=== PATIENT | female | born 1975 | race African-American/Black ===

== ENCOUNTER 2023-07-18 15:31 | Emergency (ER) | payer OTHER ==
[~2023-07-18] VITALS: Ht 165.1 cm; Wt 83.0 kg
[2023-07-18 15:33] VITALS: O2SAT 99
[2023-07-18] MEDS: HALOPERIDOL LACTATE 5MG/ML VIAL IM ONE (18:05)
[2023-07-18] MEDS: DIPHENHYDRAMINE 50MG/ML VIAL IM ONE (18:05)
[2023-07-18] MEDS: LORAZEPAM 2MG/ML INJ IM ONE (18:05)
[2023-07-18] MEDS ORDERED: MIDAZOLAM HCL 2 MG/2 ML VIAL IM ONE (18:30)
[2023-07-18] MEDS ORDERED: OLANZAPINE 10 MG/VIAL IM ONE (18:30)
[2023-07-18 18:43] LABS: BASOPHILS % 0.9 % (0.0-2.0); DIFFERENTIAL COMMENT 0; EOSINOPHILS % 0.9 % (0.0-5.0); HEMATOCRIT. 40.2 % (36.0-48.0); HEMOGLOBIN. 13.3 g/dL (12.0-16.0); LYMPHOCYTES % 34.3 % (20.0-50.0); MEAN CORPUSCULAR HEMOGLOBIN 27.6 pg (28.0-32.0); MEAN CORPUSCULAR VOLUME 83.8 fL (81.0-99.0); MEAN PLATELET VOLUME 10.1 fl (7.4-10.4); MONOCYTES % 7.4 % (2.0-8.0); NEUTROPHILS % 56.5 % (40.0-76.0); PLATELET 327 x1000/uL (130-400); RED CELL DISTRIBUTION WIDTH 14.6 % (11.6-14.6); WHITE BLOOD COUNT 9.3 x1000/uL (4.5-11.0)
[2023-07-18 18:49] LABS: CHLORIDE 106 mEq/L (98-107); POTASSIUM 3.1 mEq/L (3.5-5.1); SODIUM 138 mEq/L (136-145)
[2023-07-18 18:50] LABS: CARBON DIOXIDE 22 mEq/L (21-32)
[2023-07-18 18:55] LABS: CREATININE 1.2 mg/dL (0.6-1.0); GLUCOSE 103 mg/dL (70-105); UREA NITROGEN BLOOD 12 mg/dL (9-23)
[2023-07-18 18:56] LABS: ALANINE AMINOTRANSFERASE 18 IU/L (10-49); HCG SCREEN NEGATIVE
[2023-07-18 18:57] LABS: ACETAMINOPHEN < 2 ug/mL (10-30); ALBUMIN 4.7 g/dL (3.2-4.8); ASPARTATE AMINOTRANSFERASE 16 IU/L (<34); BILIRUBIN TOTAL 0.6 mg/dL (0.1-1.0); PROTEIN TOTAL 7.6 g/dL (6.0-8.3)
[2023-07-18 19:13] LABS: ETHANOL BLOOD < 10 mg/dL (<10)
[2023-07-18] MEDS ORDERED: POTASSIUM CHLORIDE 20MEQ TABLET SR PO ONE (19:30)
[2023-07-18 23:07] LABS: *AMPHETAMINES SCREEN URINE PRESUMPTIVE POSITIVE (NEGATIVE)
[2023-07-18 23:08] LABS: *BENZODIAZEPINES SCREEN URINE NEGATIVE (NEGATIVE)
[2023-07-18 23:09] LABS: *BARBITURATES SCREEN URINE NEGATIVE (NEGATIVE); *COCAINE SCREEN URINE NEGATIVE (NEGATIVE); CANNABINOID URINE SCREEN PRESUMPTIVE POSITIVE (NEGATIVE); ECSTASY MDMA SCREEN URINE CONF.TEST INDICATED (NEGATIVE); METHADONE URINE SCREEN NEGATIVE (NEGATIVE); OPIATES URINE SCREEN NEGATIVE (NEGATIVE); PHENCYCLIDINE URINE SCREEN NEGATIVE (NEGATIVE)
[2023-07-18] MEDS: POTASSIUM CHLORIDE 20MEQ TABLET SR PO NR (23:30)
[2023-07-19] MEDS: OLANZAPINE 5MG TABLET ODT PO SCH (09:45)
[2023-07-20 10:22] LABS: CHLORIDE 107 mEq/L (98-107); POTASSIUM 4.4 mEq/L (3.5-5.1); SODIUM 138 mEq/L (136-145)
[2023-07-20 10:23] LABS: CARBON DIOXIDE 23 mEq/L (21-32)
[2023-07-20 10:28] LABS: CREATININE 0.9 mg/dL (0.6-1.0); GLUCOSE 52 mg/dL (70-105); UREA NITROGEN BLOOD 10 mg/dL (9-23)
[2023-07-20 11:31] LABS: CALCIUM 10.1 mg/dL (8.7-10.4)
[2023-07-20 20:37] VITALS: BP 116/73; PULSE 70; RESP 16; TEMP 98.6
== END 2023-07-20 21:00 ==
LOC: ER 15:31
DX: F23 Brief psychotic disorder (principal); R45.1 Restlessness and agitation; F15.10 Other stimulant abuse, uncomplicated; E87.6 Hypokalemia; Z20.822 Contact with and (suspected) exposure to COVID-19
CPT/HCPCS: 80053; 80305; 80307; 80329; 80320; 84703; 85025; 36415 ×2; 96372; 99291; 87426; 80048; 82962; J1200; J1630; J2060; G0480